=== PATIENT | male | born 1980 | race Caucasian/White ===

== ENCOUNTER → 2019-06-19 | Outpatient (CLI) | payer BC ==
[~2019-06-19] MED LIST: NO HOME MEDICATIONS
== END ==
LOC: COL.VAS 12:30
DX: G46.4 Cerebellar stroke syndrome (principal); E27.8 Other specified disorders of adrenal gland

== ENCOUNTER 2019-08-25 09:20 | Outpatient (CLI) | payer BC ==
[~2019-08-25] VITALS: Ht 188.1 cm; Wt 101.8 kg
[2019-08-25 09:41] VITALS: BP 148/95; PULSE 72; TEMP 98.6
[2019-08-25] MEDS ORDERED: LIPITOR 40MG TA40 MG PO (09:59)
[2019-08-25] MEDS ORDERED: MAG-OX 400400 MG/TAB PO (10:00)
[2019-08-25] MEDS ORDERED: ASPIRIN E.C. 8181 MG PO (10:00)
[2019-08-25 10:10] LABS: HEMOGLOBIN 14.9 g/dl (13.5-18.0); MEAN CELL VOLUME 85 fl (80.0-100.0); MEAN CORPUSCULAR HEMOGLOBIN 28 pg (27.0-31.0); MEAN CORPUSCULAR HGB CONC 33 g/dl (33.0-37.0); MEAN PLATELET VOLUME 10.7 fl (7.4-10.4); PLATELET COUNT 173 K/mm3 (130-400); RED BLOOD COUNT 5.28 M/mm3 (4.20-5.60); REDCELL DISTRIBUTION WIDTH-CV 12.8 % (11.5-14.5)
[2019-08-25 10:12] LABS: CALCIUM 9.4 mg/dL (8.4-10.2); CREATININE, serum 0.83 (0.66-1.25); POTASSIUM 4.1 mmol/L (3.4-5.0)
[2019-08-25 10:13] LABS: PROTHROMBIN TIME 11.1 SECONDS (9.7-12.8)
[2019-08-25 11:20] VITALS: BP 124/86; PULSE 80
--- NOTE | 2019-08-25 11:20 | NUR ---
Report received from Fabiola MCGRAW. LOU johnson, Dr. Payan at to discuss poc. Pt is awake and alert, p,w,d, conversational.
[2019-08-25 11:35] VITALS: BP 131/94; PULSE 77
[2019-08-25 11:50] VITALS: BP 125/92; PULSE 72
[2019-08-25 12:05] VITALS: BP 134/93; PULSE 77
[2019-08-25 12:20] VITALS: BP 131/94; PULSE 66
--- NOTE | 2019-08-25 13:00 | NUR ---
Pt has done well after MARIANGEL, he has remained awake and alert with reg and unlabored respirations, has been able to drink with no problem, and has been ambulatory in unit and to restroom with steady gait, no lightheadedness. DC instructions r/t moderate sedation, mariangel, and general dc/f/u instructions were reviewed with pt. written instructions were provided. Pt denied any questions at time of departure. saline lock to rac was dc'd cath intact, dressing was applied. Pt was escorted to exit, his mom is driving him home.
== END 2019-08-25 13:19 | disposition home or self-care (01) ==
LOC: COL.RAD 09:20
PROVIDERS: Internal Medicine Cardiovascular Disease
DX: I49.9 Cardiac arrhythmia, unspecified (principal)
CPT/HCPCS: J2250; J2704